=== PATIENT | female | born 1985 | race African-American/Black ===

== ENCOUNTER 2020-07-09 12:41 | Outpatient (CLI) | payer OTHER, SELFPAY ==
--- NOTE | ~2020-07-09 | MR_ITS ---
EXAMINATION: MR knee LT wo con DATE: 07/09/2020 13:48 INDICATION: Internal derangement of the left knee presenting with generalized left knee pain and swel ling and left knee joint effusion. TECHNIQUE: Magnetic resonance imaging (MRI) of the left knee was performed without intravenous contra st. Sequences included coronal PD-weighted FSE, coronal PD-weighted FS FSE, sagittal T2-weighted FSE , sagittal PD-weighted FS FSE and axial PD weighted fat saturated FSE. COMPARISON: None. FINDINGS: Medial compartment: Medial meniscus is normal. Articular cartilage is normal. Lateral compartment: Lateral meniscus is normal. Articular cartilage is normal. Patellofemoral compartment: Small region of heterogeneous cartilage signal at the caudal aspect of the apical ridge and at the ca udal aspect of the trochlear groove which could be related to chondral swelling or mild partial thick ness fissuring. Ligaments and tendons: Anterior and posterior cruciate ligaments are normal. The medial collateral ligament and fibular ping ateral ligament are normal. There is edema along the distal myotendinous junction of the short head o f the biceps femoris consistent with low-grade strain without evident tendon tear or avulsion from th e lateral head of the fibula. The popliteal fibular and arcuate ligaments remain intact. The extensor mechanism is normal. The visualized medial hamstring tendons as well as the iliotibial band are norm al. Fluid: Physiologic amount of fluid in the joint space. No loose osteochondral bodies identified. Osseous/other: Normal marrow signal. No fracture or abnormal marrow replacing process. IMPRESSION: 1. Low-grade strain along the distal myotendinous junction of the short head biceps femoris. 2. 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 Reviewed, dictated and finalized at location B. [employer] IMPRESSION: 1. Low-grade strain along the distal myotendinous junction of the short head bi ceps femoris. 2. 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
== END 2020-07-09 12:42 ==
PROVIDERS: PCP Nurse Practitioner Family
DX: M25.462 Effusion, left knee (principal); S83.512A Sprain of anterior cruciate ligament of left knee, initial encounter; M23.92 Unspecified internal derangement of left knee; X58.XXXA Exposure to other specified factors, initial encounter
CPT/HCPCS: 73721